=== PATIENT | male | born 1965 | race Caucasian/White ===

== ENCOUNTER 2016-09-01 09:49 | Emergency (ER) | payer OTHER ==
[2016-09-01 10:34] VITALS: BMI 31.4
[2016-09-01 10:35] VITALS: TEMP 97.7
[2016-09-01 10:58] LABS: AUTOMATED EOSINOPHIL 2.3 % (0-5); AUTOMATED LYMPH 28.8 % (17-44); AUTOMATED NEUTROPHIL 62.9 % (45-76); MPV 8.8 fL (7.4-10.4)
[2016-09-01 11:08] LABS: PARTIAL THROMB. TIME 23.6 SEC (22-35)
[2016-09-01 11:14] LABS: BLOOD UREA NITROGEN 16 MG/DL (9-20); CALC CORRECTED 9.1 MG/DL (8.4-10.2); CALCULATED OSMOLALITY 286 MOs/Kg (270-290); CHLORIDE 100 mEq/L (98-107); SODIUM LEVEL 134 mEq/L (137-146); TOTAL PROTEIN 7.3 G/DL (6.3-8.2)
[2016-09-01 11:31] LABS: GLUCOSE 587 MG/DL (70-99)
[2016-09-01] MEDS ORDERED: REGULAR INSULIN 100 UNITS/ML - 3 ML VIAL SQ ONE (12:01)
--- NOTE | 2016-09-01 12:01 | EDPRACDOC ---
- General Information Information Source: Patient, Family Mode Of Arrival: Car - History of Present Illness Onset: Wednesday Exact Onset of Symptoms: Unknown HPI: PT COMPLAINS OF "A LITTLE" DIZZINESS, BLURRED VISION, HEAD FEELING "HEAVY" SINCE WEDNESDAY, SON STATES THAT PT HAS BEEN LOOSING WEIGHT AND IS "THIRSTY ALL THE TIME", NO PERSONAL HX OF DIABETES, STATES FATHER HAS DIABETES. PT DENIES CP OR SOBR, NO N/V/D, NO FEVER OR CHILLS. Symptoms Started: Reports: Suddenly Symptoms Description: Constant Symptoms: Reports: Change of vision Symptom Severity: Reports: Does not affect activitiy Relevant History of: Denies: Anemia, CVA, DM, Electrolyte disorder, GI Bleed, ND , TIA Associated signs and symptoms:: Reports: Headache. Denies: GI Bleed, Chest pain , Diarrhea, Fever, Nausea, Palpitations, Vomiting <Joni Khanna - Last Filed: 09/01/16 11:59> <Alena Fournier - Last Filed: 09/01/16 13:11> - General Information Chief Complaint: Neuro Symptoms/Deficits Stated Complaint: BLUR VISION Time Seen by Provider: 09/01/16 11:54 Home Medications: Home Medications Metformin HCl 500 mg PO BID #60 tab 09/01/16 Rivaroxaban [Xarelto] 15 mg PO DAILY 09/01/16 Allergies/Adverse Reactions: Allergies Allergy/AdvReac Type Severity Reaction Status Date / Time No Known Allergies Allergy Verified 09/01/16 11:10 ED Past Medical History - History Reviewed Yes Nurses notes reviewed and agree except as marked - Patient Medical History Psychological History: Denies: Depression Additional Past Medical History: VARICOSE VEINS. DVT - Social Medical History Smoking Status: Heavy tobacco smoker (5 or more cigarettes/day or daily pipe/ cigar) ETOH: None Substance Abuse: None <Joni Khanna - Last Filed: 09/01/16 11:59> EDM Review of Systems - Review of Systems Constitutional: negative: Chills, Fever Eyes: Blurred Vision Ears: negative: Drainage, Pain Throat: negative: Pain Nose: negative: Bleeding Respiratory: negative: Cough, Shortness of Breath, Wheezing Cardiovascular: negative: Chest Pain, Palpitations Gastrointestinal: negative: Diarrhea, Nausea, Pain, Vomiting Genitourinary: negative: Dysuria, Frequency Neurological: Dizziness, Headache. negative: Numbness, Weakness Musculoskeletal: No Symptoms Reported Integumentary: No Symptoms Reported <Joni Khanna - Last Filed: 09/01/16 11:59> - Physical Exam Constitutional: Alert (Awake), No apparent distress Oriented to: Time, Person, Place Last recorded Vital Signs: Last Vital Signs Temp 97.7 F 09/01/16 10:34 Pulse 97 09/01/16 10:34 Resp 20 09/01/16 10:34 BP 173/85 09/01/16 10:34 Pulse Ox 95 09/01/16 10:34 Oxygen Pulse Oxygen Saturation 95 O2 Device Room Air Oxygen Flow Rate Fraction of Inspired Oxygen ( FIO2) - HEENT Head: Normal ( normocephalic) Eye Exam: Normal (PERRL, EOMI, Sclera white) Oropharynx: Normal (Pharynx:Moist without exudate,Gums-no swelling) Tympanic Membrane: Normal ENT EAC: Normal TMJ: Normal Nose: No Symptoms Reported (septum midline) Neck: Normal (FROM, trachea at midline) - Respiratory/Cardiovascular Respiratory: Normal - CTA (BBS clear to auscultation without adventitious sounds ) Cardiovascular: Normal (RRR without murmur, gallop or rub) - GI Auscultation: Normal (NABS) Palpation: Normal (Soft,No rebound or guarding, non distended) Tenderness: Non tender Mark's Sign: Negative - Musculoskeletal Back: Normal (Non-Tender) Extremities: Normal (Normal tone, Pulses 2+ No cyanosis or edema, FROM) - Integumentary Skin: Normal, Warm, Dry Lymphatics: Normal (no adenopathy) - Neurologic Memory Impaired: Normal Motor Function: Normal (Normal tone, Pulses 2+ No cyanosis or edema, FROM) Cranial Nerve: Normal (CN II-X11 intact sensation, strength 5/5) Cerebellar: Normal Mood Description: Normal Perception: Normal <Joni Khanna - Last Filed: 09/01/16 11:59> - Physical Exam Last recorded Vital Signs: Last Vital Signs Temp 97.7 F 09/01/16 10:34 Pulse 88 09/01/16 12:00 Resp 20 09/01/16 12:00 BP 162/78 09/01/16 12:00 Pulse Ox 96 09/01/16 12:00 Oxygen Pulse Oxygen Saturation 96 O2 Device Room Air Oxygen Flow Rate Fraction of Inspired Oxygen ( FIO2) <Alena Fournier Wilver - Last Filed: 09/01/16 13:11> NIH Stroke Scale Initial Evaluation Level of Consciousness: Alert LOC- Question: Answers Both Correctly LOC Commands: Both Task Correctly Best Gaze: Normal Visual: No Visual Loss Facial Palsy: Normal Movement Motor Arm LEFT: No Drift Motor Arm RIGHT: No Drift Motor Leg LEFT: No Drift Motor Leg RIGHT: No Drift Limb Ataxia: Absent Sensory: Normal Best Language: No Aphasia Dysarthria: Normal Extinction and Inattention: No Abnormality (Neglect) Score: 0out of42 <Joni Khanna - Last Filed: 09/01/16 11:59> - Results 09/01/16 10:30 09/01/16 10:30 WBC 6.1 xk/uL (3.8-10.8) 09/01/16 10:30 RBC 5.44 xM/uL (4.70-6.10) 09/01/16 10:30 Hgb 15.7 g/dL (14.0-18.0) 09/01/16 10:30 Hct 45.2 % (42-52) 09/01/16 10:30 MCV 83 fL (80-94) 09/01/16 10:30 MCH 28.8 pg (27-32) 09/01/16 10:30 MCHC 34.7 g/dl (33-36) 09/01/16 10:30 RDW 13.2 % (11.5-14.5) 09/01/16 10:30 Plt Count 192 xk/uL (130-400) 09/01/16 10:30 MPV 8.8 fL (7.4-10.4) 09/01/16 10:30 Neut % (Auto) 62.9 % (45-76) 09/01/16 10:30 Lymph % (Auto) 28.8 % (17-44) 09/01/16 10:30 [place] % (Auto) 5.0 % (3-10) 09/01/16 10:30 Eos % (Auto) 2.3 % (0-5) 09/01/16 10:30 Baso % (Auto) 1.0 % (0-2) 09/01/16 10:30 Absolute Neuts (auto) 3.78 xk/uL (1.7-8.2) 09/01/16 10:30 Absolute Lymphs (auto) 1.71 xk/uL (0.65-4.75) 09/01/16 10:30 PT 10.0 SEC (9.2-11.2) 09/01/16 10:30 INR 1.0 09/01/16 10:30 APTT 23.6 SEC (22-35) 09/01/16 10:30 Sodium 134 mEq/L (137-146) L 09/01/16 10:30 Potassium 4.4 mEq/L (3.5-5.1) 09/01/16 10:30 Chloride 100 mEq/L (98-107) 09/01/16 10:30 Carbon Dioxide 23 mMOL/L (22-33) 09/01/16 10:30 Anion Gap 15 mEq/L (8-16) 09/01/16 10:30 BUN 16 MG/DL (9-20) 09/01/16 10:30 Creatinine 1.00 MG/DL (0.66-1.25) 09/01/16 10:30 Estimated GFR (MDRD) > 60 mL/min (>=60) 09/01/16 10:30 Glucose 587 MG/DL (70-99) H* 09/01/16 10:30 Calculated Osmolality 286 MOs/Kg (270-290) 09/01/16 10:30 Calcium 9.0 MG/DL (8.4-10.2) 09/01/16 10:30 Corrected Calcium 9.1 MG/DL (8.4-10.2) 09/01/16 10:30 Total Bilirubin 0.8 MG/DL (0.2-1.3) 09/01/16 10:30 AST 28 IU/L (17-59) 09/01/16 10:30 ALT 47 IU/L (21-72) 09/01/16 10:30 Alkaline Phosphatase 185 IU/L (38-126) H 09/01/16 10:30 Troponin I < 0.01 ng/mL (<.04) 09/01/16 10:30 Igt-F-Vkuqgosupst Pept 72 pg/mL (0-900) 09/01/16 10:30 Total Protein 7.3 G/DL (6.3-8.2) 09/01/16 10:30 Albumin 3.9 G/DL (3.5-5.0) 09/01/16 10:30 Lab Results 09/01/16 09/01/16 09/01/16 10:30 10:30 10:30 WBC 6.1 RBC 5.44 Hgb 15.7 Hct 45.2 MCV 83 MCH 28.8 MCHC 34.7 RDW 13.2 Plt Count 192 MPV 8.8 Neut % (Auto) 62.9 Lymph % (Auto) 28.8 [place] % (Auto) 5.0 Eos % (Auto) 2.3 Baso % (Auto) 1.0 Absolute Neuts (auto) 3.78 Absolute Lymphs (auto) 1.71 PT 10.0 INR 1.0 APTT 23.6 Sodium 134 L Potassium 4.4 Chloride 100 Carbon Dioxide 23 Anion Gap 15 BUN 16 Creatinine 1.00 Estimated GFR (MDRD) > 60 Glucose 587 H* Calculated Osmolality 286 Calcium 9.0 Corrected Calcium 9.1 Total Bilirubin 0.8 AST 28 ALT 47 Alkaline Phosphatase 185 H Troponin I < 0.01 Xvm-X-Nmfgiulqfuy Pept 72 Total Protein 7.3 Albumin 3.9 <Joni Khanna - Last Filed: 09/01/16 11:59> - Results 09/01/16 10:30 09/01/16 10:30 WBC 6.1 xk/uL (3.8-10.8) 09/01/16 10:30 RBC 5.44 xM/uL (4.70-6.10) 09/01/16 10:30 Hgb 15.7 g/dL (14.0-18.0) 09/01/16 10:30 Hct 45.2 % (42-52) 09/01/16 10:30 MCV 83 fL (80-94) 09/01/16 10:30 MCH 28.8 pg (27-32) 09/01/16 10:30 MCHC 34.7 g/dl (33-36) 09/01/16 10:30 RDW 13.2 % (11.5-14.5) 09/01/16 10:30 Plt Count 192 xk/uL (130-400) 09/01/16 10:30 MPV 8.8 fL (7.4-10.4) 09/01/16 10:30 Neut % (Auto) 62.9 % (45-76) 09/01/16 10:30 Lymph % (Auto) 28.8 % (17-44) 09/01/16 10:30 [place] % (Auto) 5.0 % (3-10) 09/01/16 10:30 Eos % (Auto) 2.3 % (0-5) 09/01/16 10:30 Baso % (Auto) 1.0 % (0-2) 09/01/16 10:30 Absolute Neuts (auto) 3.78 xk/uL (1.7-8.2) 09/01/16 10:30 Absolute Lymphs (auto) 1.71 xk/uL (0.65-4.75) 09/01/16 10:30 PT 10.0 SEC (9.2-11.2) 09/01/16 10:30 INR 1.0 09/01/16 10:30 APTT 23.6 SEC (22-35) 09/01/16 10:30 Sodium 134 mEq/L (137-146) L 09/01/16 10:30 Potassium 4.4 mEq/L (3.5-5.1) 09/01/16 10:30 Chloride 100 mEq/L (98-107) 09/01/16 10:30 Carbon Dioxide 23 mMOL/L (22-33) 09/01/16 10:30 Anion Gap 15 mEq/L (8-16) 09/01/16 10:30 BUN 16 MG/DL (9-20) 09/01/16 10:30 Creatinine 1.00 MG/DL (0.66-1.25) 09/01/16 10:30 Estimated GFR (MDRD) > 60 mL/min (>=60) 09/01/16 10:30 Glucose 587 MG/DL (70-99) H* 09/01/16 10:30 POC Capillary Glucose 426 MG/DL (70-99) H* 09/01/16 12:27 Calculated Osmolality 286 MOs/Kg (270-290) 09/01/16 10:30 Calcium 9.0 MG/DL (8.4-10.2) 09/01/16 10:30 Corrected Calcium 9.1 MG/DL (8.4-10.2) 09/01/16 10:30 Total Bilirubin 0.8 MG/DL (0.2-1.3) 09/01/16 10:30 AST 28 IU/L (17-59) 09/01/16 10:30 ALT 47 IU/L (21-72) 09/01/16 10:30 Alkaline Phosphatase 185 IU/L (38-126) H 09/01/16 10:30 Troponin I < 0.01 ng/mL (<.04) 09/01/16 10:30 Pgm-T-Bzcfegoppox Pept 72 pg/mL (0-900) 09/01/16 10:30 Total Protein 7.3 G/DL (6.3-8.2) 09/01/16 10:30 Albumin 3.9 G/DL (3.5-5.0) 09/01/16 10:30 Lab Results 09/01/16 09/01/16 09/01/16 12:27 10:30 10:30 WBC 6.1 RBC 5.44 Hgb 15.7 Hct 45.2 MCV 83 MCH 28.8 MCHC 34.7 RDW 13.2 Plt Count 192 MPV 8.8 Neut % (Auto) 62.9 Lymph % (Auto) 28.8 [place] % (Auto) 5.0 Eos % (Auto) 2.3 Baso % (Auto) 1.0 Absolute Neuts (auto) 3.78 Absolute Lymphs (auto) 1.71 PT 10.0 INR 1.0 APTT 23.6 Sodium Potassium Chloride Carbon Dioxide Anion Gap BUN Creatinine Estimated GFR (MDRD) Glucose POC Capillary Glucose 426 H* Calculated Osmolality Calcium Corrected Calcium Total Bilirubin AST ALT Alkaline Phosphatase Troponin I Tyv-N-Pynerfbjhiz Pept Total Protein Albumin 09/01/16 10:30 WBC RBC Hgb Hct MCV MCH MCHC RDW Plt Count MPV Neut % (Auto) Lymph % (Auto) [place] % (Auto) Eos % (Auto) Baso % (Auto) Absolute Neuts (auto) Absolute Lymphs (auto) PT INR APTT Sodium 134 L Potassium 4.4 Chloride 100 Carbon Dioxide 23 Anion Gap 15 BUN 16 Creatinine 1.00 Estimated GFR (MDRD) > 60 Glucose 587 H* POC Capillary Glucose Calculated Osmolality 286 Calcium 9.0 Corrected Calcium 9.1 Total Bilirubin 0.8 AST 28 ALT 47 Alkaline Phosphatase 185 H Troponin I < 0.01 Xbj-H-Zqvvutdsjux Pept 72 Total Protein 7.3 Albumin 3.9 <Alena Fournier - Last Filed: 09/01/16 13:11> <Joni Khanna - Last Filed: 09/01/16 11:59> - Departure Education/Counseling Given To: Patient, Family Member Education/Counseling Given Regarding: Diagnosis, Treatment, Prognosis <Alena Fournier - Last Filed: 09/01/16 13:11> - Departure Final Diagnosis: New onset type 2 diabetes mellitus Instructions: Managing Diabetes During Sick Days (ED), Diabetes and Exercise Referrals: None,No Provider [Primary Care Provider] - One Week Prescriptions: Metformin HCl 500 mg PO BID #60 tab Forms: Patient Discharge Instructions, ED Discharge Instructions
[2016-09-01] MEDS ORDERED: MetFORMIN 500 MG IMMED RELEASE TAB PO ONE (13:06)
--- NOTE | 2016-09-01 13:06 | DIRPT ---
CLINICAL DATA: Headache and dizziness with blurred vision for 4 days EXAM: CT HEAD WITHOUT CONTRAST TECHNIQUE: Contiguous axial images were obtained from the base of the skull through the vertex without intravenous contrast. COMPARISON: None. FINDINGS: The ventricles are normal in size and configuration. There is no intracranial mass, hemorrhage, extra-axial fluid collection, or midline shift. There is mild small vessel disease in the anterior centra semiovale bilaterally. Elsewhere, valentine-white compartments appear normal. No acute infarct evident. The bony calvarium appears intact. The mastoid air cells are clear. Visualized orbits appear symmetric bilaterally. IMPRESSION: Slight periventricular small vessel disease. No intracranial mass, hemorrhage, or evidence of acute infarct. Electronically Signed By: Goldy Corea III, M.D. On: 09/01/2016 13:03
[2016-09-01 13:35] VITALS: PULSE 69
[2016-09-01 14:34] VITALS: BP 170/94
== END 2016-09-01 13:50 | disposition home or self-care (01) ==
LOC: ED 09:49
DX: E11.9 Type 2 diabetes mellitus without complications (principal)
CPT/HCPCS: 36415; 70450; 80053; 82962; 83880; 84484; 85025; 85610; 85730; 93005; 96372; 99283; J3490